=== PATIENT | female | born 1940 | race Two or more races ===

== ENCOUNTER 2021-05-17 01:35 | Emergency (ER) | payer MEDICARE, OTHER ==
[~2021-05-17] VITALS: Ht 170.2 cm; Wt 61.2 kg
[2021-05-17] MEDS ORDERED: TDAP [DIPH/PERTUSSIS/TET] 0.5 ML VIAL IM ONE ×2 (01:59→02:00)
--- NOTE | 2021-05-17 02:00 | NUR ---
TO ER BED 12. [facility] C/O LAC TO RIGHT FOREHEAD S/P GLF. PT AAOX1. NOT IN RESPIRATORY DISTRESS. CONNECTED TO MONITOR. AWAITING MD SALGUERO.
--- NOTE | 2021-05-17 04:43 | NUR ---
[facility]
--- NOTE | 2021-05-17 04:45 | NUR ---
[facility] ETA: 60-75 MIN
--- NOTE | 2021-05-17 06:13 | NUR ---
[facility] ARRIVED TO TRANSPORTATION
[2021-05-17 06:14] VITALS: BP 125/80
== END 2021-05-17 06:14 ==
LOC: ER 01:38
DX: S00.81XA Abrasion of other part of head, initial encounter (principal); F20.9 Schizophrenia, unspecified; I10 Essential (primary) hypertension; F03.90 Unspecified dementia, unspecified severity, without behavioral disturbance, psychotic disturbance, mood disturbance, and anxiety; W19.XXXA Unspecified fall, initial encounter; Y93.89 Activity, other specified; Y92.89 Other specified places as the place of occurrence of the external cause; Y99.8 Other external cause status
CPT/HCPCS: 70450-TC; 90715

== ENCOUNTER 2023-11-14 16:25 | Inpatient (IN) | payer MEDICARE, OTHER ==
[~2023-11-14] VITALS: Ht 157.5 cm; Wt 39.0 kg
[2023-11-14] MEDS ORDERED: ACETAMINOPHEN 650 MG/SUPP.RECT RC ONE ×2 (18:29→18:35)
[2023-11-14] MEDS: ACETAMINOPHEN 650 MG/SUPP.RECT RC ONE (18:38)
[2023-11-14 18:41] LABS: BASOPHILS # (AUTO) 0.1 K/uL (0.0-0.2); BASOPHILS % (AUTO) 0.8 % (0.0-2.0); EOSINOPHILS # (AUTO) 0.1 K/uL (0.0-0.7); EOSINOPHILS % (AUTO) 0.9 % (0.0-6.0); HEMATOCRIT 40 % (33-45); HEMOGLOBIN 13.3 g/dL (11.5-14.8); LYMPHOCYTES # (AUTO) 1.1 K/uL (0.8-4.8); LYMPHOCYTES % (AUTO) 13.2 % (20.0-44.0); MEAN CORPUSCULAR HEMOGLOBIN 30 PG (26.0-33.0); MEAN CORPUSCULAR HGB CONC 33 g/dl (31.0-36.0); MEAN CORPUSCULAR VOLUME 90 fL (82-100); MONOCYTES # (AUTO) 0.6 K/uL (0.1-1.30); NEUTROPHILS # (AUTO) 6.2 K/uL (1.8-8.9); NEUTROPHILS % (AUTO) 77.1 % (43.0-81.0); PLATELET COUNT (AUTO) 238 K/uL (150-450); RED BLOOD CELL COUNT(AUTO) 4.46 MIL/uL (4.0-5.2); RED CELL DISTRIBUTION WIDTH 15.1 % (11.5-15.0)
[2023-11-14 18:48] LABS: CALCIUM, SERUM 10.1 mg/dL (8.5-10.1); CARBON DIOXIDE 28 mmol/L (21-32); CHLORIDE 109 mmol/L (98-107); CREATININE 0.8 mg/dL (0.6-1.3); GLUCOSE 111 mg/dL (74-106); POTASSIUM 4.2 mmol/L (3.5-5.1); SODIUM SERUM 142 mmol/L (136-145); UREA NITROGEN, BLOOD 40 mg/dL (7-18)
[2023-11-14 18:51] LABS: INR 1.04 (0.91-1.10); PARTIAL THROMBOPLASTIN TIME 23.6 SEC (24.3-34.3); PROTHROMBIN TIME 10.7 SECS (9.2-11.1)
[2023-11-14 18:54] LABS: ALANINE AMINOTRANSFERASE 30 U/L (12-78); ALBUMIN 2.8 g/dL (3.4-5.0); ALKALINE PHOSPHATASE 82 U/L (46-116); ASPARTATE AMINOTRANSFERASE 36 U/L (15-37); BILIRUBIN,DIRECT 0.1 mg/dL (0.0-0.2); BILIRUBIN,TOTAL 0.6 mg/dL (0.2-1.0); TOTAL PROTEIN, SERUM 7.2 g/dL (6.4-8.2)
[2023-11-14] MEDS ORDERED: AMLO-212 PO (18:55)
[2023-11-14] MEDS ORDERED: NA P133E RC (18:55)
[2023-11-14] MEDS ORDERED: QUET25TA PO (18:55)
[2023-11-14] MEDS ORDERED: HYDR-500 PO (18:55)
[2023-11-14] MEDS ORDERED: CRAN300T PO (18:55)
[2023-11-14] MEDS ORDERED: QUET50TA PO (18:55)
[2023-11-14] MEDS ORDERED: CHOL100043 PO (18:55)
[2023-11-14] MEDS ORDERED: BISA10SU11 RC (18:55)
[2023-11-14] MEDS ORDERED: LORA-258 PO (18:55)
[2023-11-14] MEDS ORDERED: HYDR-4076 PO (18:55)
[2023-11-14] MEDS ORDERED: DOCU100C36 PO (18:55)
[2023-11-14] MEDS ORDERED: MAGN400O6 PO (18:55)
[2023-11-14] MEDS ORDERED: ACET325T53 PO (18:55)
[2023-11-14] MEDS ORDERED: MELA5TAB PO (18:55)
[2023-11-14 18:57] LABS: LACTIC ACID 0.9 mmol/L (0.4-2.0)
[2023-11-14] MEDS ORDERED: MAGNESIUM HYDROXIDE 30 ML UDC PO PRN (20:30)
[2023-11-14] MEDS ORDERED: MAG HYDROX/AL HYDROX/SIMETH 30 ML UDC PO PRN (20:30)
[2023-11-14] MEDS ORDERED: ACETAMINOPHEN 325 MG TABLET PO PRN (20:30)
[2023-11-14] MEDS ORDERED: ONDANSETRON HCL/PF 4 MG/2 ML VIAL IVP PRN (20:30)
[2023-11-14] MEDS ORDERED: BISACODYL SUPP (10 MG) 10 MG/SUPP.RECT SUPP.RECT RC PRN (21:30)
[2023-11-14 21:51] VITALS: BP 156/90; TEMP 98.6; O2SAT 97
[2023-11-14] MEDS ORDERED: MELATONIN 3 MG TABLET PO SCH (22:00)
[2023-11-14] MEDS: QUETIAPINE FUMARATE 25 MG TABLET PO SCH (22:00)
[2023-11-14] MEDS: IV 1/2NS 1000 ML 1,000 ML IV SCH (22:46)
[2023-11-14] MEDS: ENOXAPARIN SODIUM 40 MG/0.4 ML DISP.SYRIN SQ SCH (23:11)
[2023-11-15 07:05] LABS: BASOPHILS % (AUTO) 0.3 % (0.0-2.0); EOSINOPHILS % (AUTO) 0.2 % (0.0-6.0); HEMATOCRIT 39 % (33-45); HEMOGLOBIN 12.6 g/dL (11.5-14.8); LYMPHOCYTES # (AUTO) 0.8 K/uL (0.8-4.8); LYMPHOCYTES % (AUTO) 10.3 % (20.0-44.0); MEAN CORPUSCULAR HEMOGLOBIN 29 PG (26.0-33.0); MEAN CORPUSCULAR HGB CONC 33 g/dl (31.0-36.0); MEAN CORPUSCULAR VOLUME 89 fL (82-100); MONOCYTES # (AUTO) 0.4 K/uL (0.1-1.30); MONOCYTES % (AUTO) 5.5 % (2.0-12.0); NEUTROPHILS # (AUTO) 6.6 K/uL (1.8-8.9); NEUTROPHILS % (AUTO) 83.7 % (43.0-81.0); PLATELET COUNT (AUTO) 226 K/uL (150-450); RED BLOOD CELL COUNT(AUTO) 4.35 MIL/uL (4.0-5.2); RED CELL DISTRIBUTION WIDTH 14.7 % (11.5-15.0); WHITE BLOOD COUNT (AUTO) 7.9 K/uL (4.3-11.0)
[2023-11-15 07:30] VITALS: BP 202/104; TEMP 97.7; O2SAT 97
[2023-11-15 07:35] LABS: CALCIUM, SERUM 9.9 mg/dL (8.5-10.1); CARBON DIOXIDE 25 mmol/L (21-32); CHLORIDE 108 mmol/L (98-107); CREATININE 0.6 mg/dL (0.6-1.3); GLUCOSE 124 mg/dL (74-106); MAGNESIUM 2.1 mg/dL (1.8-2.4); PHOSPHORUS 2.9 mg/dL (2.5-4.9); POTASSIUM 3.7 mmol/L (3.5-5.1); SODIUM SERUM 144 mmol/L (136-145); UREA NITROGEN, BLOOD 40 mg/dL (7-18)
[2023-11-15] MEDS ORDERED: Medication Not On Formulary EA (Cranberry Extract (Cranberry) 450 MG) PO SCH (09:00)
[2023-11-15] MEDS: QUETIAPINE FUMARATE 25 MG TABLET PO SCH (09:48)
[2023-11-15] MEDS: AMLODIPINE BESYLATE 5 MG TABLET PO SCH (09:49)
[2023-11-15 11:51] LABS: APPEARANCE,URINE TURBID (CLEAR); BILIRUBIN,URINE NEGATIVE (NEGATIVE); BLOOD, URINE TRACE-INTA Ery/uL (NEGATIVE); COLOR,URINE YELLOW (YELLOW); KETONES,URINE NEGATIVE (NEGATIVE); LEUKOCYTE ESTERASE ,URINE 2+ (NEGATIVE); NITRITE, URINE POSITIVE (NEGATIVE); PROTEIN,URINE TRACE mg/dl (NEGATIVE); UGLUCOSE NEGATIVE (NEGATIVE); UROBILINOGEN,URINE 0.2 EU/dL (0.2)
[2023-11-15 12:53] LABS: ADD URINE CULTURE YES; BACTERIA,URINE 1+ /HPF (None Seen)
[2023-11-15] MEDS: LORAZEPAM 0.5 MG TABLET PO SCH (12:53)
[2023-11-15 16:00] VITALS: BP 170/96; TEMP 98.8; O2SAT 97
[2023-11-15] MEDS: DOCUSATE SODIUM 100 MG CAPSULE PO SCH (17:43)
[2023-11-15] MEDS: CHOLECALCIFEROL 1,000 UNIT TABLET (VIT D3) PO SCH (17:43)
[2023-11-15] MEDS: CEFTRIAXONE 1 G in IV D5W 50 ML IV SCH (19:50)
[2023-11-15 20:00] VITALS: BP 156/91; TEMP 98.9; O2SAT 95
[2023-11-15 21:41] VITALS: BP 156/91; TEMP 98.9; O2SAT 95
[2023-11-16] MEDS: IV 1/2NS 1000 ML 1,000 ML IV PRN (03:54)
[2023-11-16 06:31] LABS: BASOPHILS % (AUTO) 0.5 % (0.0-2.0); EOSINOPHILS % (AUTO) 0.3 % (0.0-6.0); HEMATOCRIT 36 % (33-45); LYMPHOCYTES # (AUTO) 0.9 K/uL (0.8-4.8); LYMPHOCYTES % (AUTO) 11.7 % (20.0-44.0); MEAN CORPUSCULAR HEMOGLOBIN 30 PG (26.0-33.0); MEAN CORPUSCULAR HGB CONC 34 g/dl (31.0-36.0); MEAN CORPUSCULAR VOLUME 89 fL (82-100); MONOCYTES # (AUTO) 0.5 K/uL (0.1-1.30); MONOCYTES % (AUTO) 6.1 % (2.0-12.0); NEUTROPHILS % (AUTO) 81.4 % (43.0-81.0); PLATELET COUNT (AUTO) 219 K/uL (150-450); RED BLOOD CELL COUNT(AUTO) 4.04 MIL/uL (4.0-5.2); RED CELL DISTRIBUTION WIDTH 14.4 % (11.5-15.0); WHITE BLOOD COUNT (AUTO) 7.4 K/uL (4.3-11.0)
[2023-11-16 06:38] LABS: CARBON DIOXIDE 23 mmol/L (21-32); CHLORIDE 106 mmol/L (98-107); POTASSIUM 3.5 mmol/L (3.5-5.1); SODIUM SERUM 142 mmol/L (136-145)
[2023-11-16 06:55] LABS: CALCIUM, SERUM 9.3 mg/dL (8.5-10.1); CREATININE 0.6 mg/dL (0.6-1.3); GLUCOSE 104 mg/dL (74-106); UREA NITROGEN, BLOOD 34 mg/dL (7-18)
[2023-11-16 08:00] VITALS: BP 130/84; TEMP 98.6; O2SAT 97
[2023-11-16] MEDS: MUPIROCIN OINT 2% 22 GM TUBE NS SCH (09:51)
[2023-11-16 16:00] VITALS: BP 139/79; TEMP 97.3; O2SAT 95
[2023-11-16 20:00] VITALS: BP 148/85; TEMP 97.7; O2SAT 95
[2023-11-17 06:20] LABS: BASOPHILS % (AUTO) 0.8 % (0.0-2.0); EOSINOPHILS # (AUTO) 0.2 K/uL (0.0-0.7); EOSINOPHILS % (AUTO) 3.1 % (0.0-6.0); HEMATOCRIT 36 % (33-45); HEMOGLOBIN 12.1 g/dL (11.5-14.8); LYMPHOCYTES # (AUTO) 1.2 K/uL (0.8-4.8); MEAN CORPUSCULAR HEMOGLOBIN 30 PG (26.0-33.0); MEAN CORPUSCULAR HGB CONC 34 g/dl (31.0-36.0); MEAN CORPUSCULAR VOLUME 89 fL (82-100); MONOCYTES # (AUTO) 0.5 K/uL (0.1-1.30); MONOCYTES % (AUTO) 7.5 % (2.0-12.0); NEUTROPHILS # (AUTO) 4.3 K/uL (1.8-8.9); NEUTROPHILS % (AUTO) 69.6 % (43.0-81.0); PLATELET COUNT (AUTO) 198 K/uL (150-450); RED BLOOD CELL COUNT(AUTO) 4.06 MIL/uL (4.0-5.2); RED CELL DISTRIBUTION WIDTH 14.4 % (11.5-15.0); WHITE BLOOD COUNT (AUTO) 6.2 K/uL (4.3-11.0)
[2023-11-17 06:45] LABS: CALCIUM, SERUM 9.5 mg/dL (8.5-10.1); CARBON DIOXIDE 22 mmol/L (21-32); CHLORIDE 104 mmol/L (98-107); CREATININE 0.5 mg/dL (0.6-1.3); GLUCOSE 77 mg/dL (74-106); POTASSIUM 3.3 mmol/L (3.5-5.1); SODIUM SERUM 140 mmol/L (136-145); UREA NITROGEN, BLOOD 24 mg/dL (7-18)
[2023-11-17 07:02] LABS: MAGNESIUM 1.9 mg/dL (1.8-2.4); PHOSPHORUS 2.3 mg/dL (2.5-4.9)
[2023-11-17 08:00] VITALS: BP 102/49; TEMP 98.6; O2SAT 97
[2023-11-17] MEDS: hydrALAZINE HCL 25 MG TABLET PO PRN (08:02)
[2023-11-17] MEDS: POTASSIUM CHLORIDE 20 MEQ TAB.PRT.SR PO SCH (09:50)
[2023-11-17] MEDS: K PHOS NEUTRAL 250 MG TABLET PO ONE (15:23)
[2023-11-17 16:00] VITALS: BP 132/66; TEMP 98.4; O2SAT 98
[2023-11-17 20:00] VITALS: BP 154/92; TEMP 97.3; O2SAT 98
[2023-11-18 06:19] LABS: BASOPHILS % (AUTO) 0.7 % (0.0-2.0); EOSINOPHILS # (AUTO) 0.1 K/uL (0.0-0.7); HEMATOCRIT 34 % (33-45); HEMOGLOBIN 11.6 g/dL (11.5-14.8); LYMPHOCYTES # (AUTO) 0.9 K/uL (0.8-4.8); LYMPHOCYTES % (AUTO) 13.9 % (20.0-44.0); MEAN CORPUSCULAR HEMOGLOBIN 30 PG (26.0-33.0); MEAN CORPUSCULAR HGB CONC 34 g/dl (31.0-36.0); MEAN CORPUSCULAR VOLUME 88 fL (82-100); MONOCYTES # (AUTO) 0.4 K/uL (0.1-1.30); MONOCYTES % (AUTO) 6.8 % (2.0-12.0); NEUTROPHILS # (AUTO) 4.8 K/uL (1.8-8.9); NEUTROPHILS % (AUTO) 77.6 % (43.0-81.0); PLATELET COUNT (AUTO) 236 K/uL (150-450); RED BLOOD CELL COUNT(AUTO) 3.89 MIL/uL (4.0-5.2); RED CELL DISTRIBUTION WIDTH 13.8 % (11.5-15.0); WHITE BLOOD COUNT (AUTO) 6.2 K/uL (4.3-11.0)
[2023-11-18 06:36] LABS: CALCIUM, SERUM 9.3 mg/dL (8.5-10.1); CARBON DIOXIDE 19 mmol/L (21-32); CHLORIDE 101 mmol/L (98-107); CREATININE 0.4 mg/dL (0.6-1.3); GLUCOSE 83 mg/dL (74-106); MAGNESIUM 1.6 mg/dL (1.8-2.4); PHOSPHORUS 2.6 mg/dL (2.5-4.9); POTASSIUM 3.1 mmol/L (3.5-5.1); SODIUM SERUM 137 mmol/L (136-145); UREA NITROGEN, BLOOD 14 mg/dL (7-18)
[2023-11-18 08:00] VITALS: BP 173/86; TEMP 98.6; O2SAT 94
[2023-11-18] MEDS: POTASSIUM CHLORIDE 20 MEQ TAB.PRT.SR PO SCH (10:30)
[2023-11-18] MEDS: MAGNESIUM OXIDE 400 MG TABLET PO ONE (11:05)
[2023-11-18 12:00] VITALS: BP 118/83; TEMP 98.4; O2SAT 98
[2023-11-18] MEDS ORDERED: POTASSIUM BICARBONATE/CIT AC 25 MEQ TABLET.EFF NG SCH (12:00)
[2023-11-18] MEDS: LEVOFLOXACIN (250MG) 250 MG TABLET NG SCH (15:30)
[2023-11-18] MEDS: POTASSIUM CHLORIDE 20 MEQ POWDER PACKET GT SCH (15:39)
[2023-11-18 16:00] VITALS: BP 125/78; TEMP 98.7; O2SAT 98
[2023-11-18] MEDS: MULTIVITAMINS,THERAGRAN 1 UDTAB TABLET GT SCH (16:48)
[2023-11-18] MEDS ORDERED: MAGNESIUM HYDROXIDE 30 ML UDC GT PRN (17:50)
[2023-11-18] MEDS ORDERED: hydrALAZINE HCL 25 MG TABLET GT PRN (17:50)
[2023-11-18] MEDS ORDERED: MAG HYDROX/AL HYDROX/SIMETH 30 ML UDC GT PRN (17:50)
[2023-11-18] MEDS: JEVITY 1.2 CAL 1,000 ML BOTTLE GT SCH (17:52)
[2023-11-18] MEDS: CHOLECALCIFEROL 1,000 UNIT TABLET (VIT D3) GT SCH (17:57)
[2023-11-18] MEDS: DOCUSATE SODIUM LIQ 100 MG/10 ML UDC GT SCH (17:57)
[2023-11-18] MEDS ORDERED: ACETAMINOPHEN 650 MG/20.3 ML UDC GT PRN (18:00)
[2023-11-18 20:00] VITALS: BP 118/100; TEMP 95.1; TEMP 98.1; O2SAT 97
[2023-11-19 07:05] LABS: BASOPHILS % (AUTO) 0.3 % (0.0-2.0); EOSINOPHILS # (AUTO) 0.1 K/uL (0.0-0.7); HEMATOCRIT 33 % (33-45); HEMOGLOBIN 11.4 g/dL (11.5-14.8); LYMPHOCYTES # (AUTO) 0.6 K/uL (0.8-4.8); LYMPHOCYTES % (AUTO) 8.4 % (20.0-44.0); MEAN CORPUSCULAR HEMOGLOBIN 30 PG (26.0-33.0); MEAN CORPUSCULAR HGB CONC 34 g/dl (31.0-36.0); MEAN CORPUSCULAR VOLUME 87 fL (82-100); MONOCYTES # (AUTO) 0.5 K/uL (0.1-1.30); MONOCYTES % (AUTO) 7.3 % (2.0-12.0); NEUTROPHILS # (AUTO) 5.6 K/uL (1.8-8.9); PLATELET COUNT (AUTO) 256 K/uL (150-450); RED BLOOD CELL COUNT(AUTO) 3.82 MIL/uL (4.0-5.2); WHITE BLOOD COUNT (AUTO) 6.7 K/uL (4.3-11.0)
[2023-11-19 07:25] LABS: CARBON DIOXIDE 24 mmol/L (21-32); CHLORIDE 102 mmol/L (98-107); CREATININE 0.4 mg/dL (0.6-1.3); GLUCOSE 180 mg/dL (74-106); MAGNESIUM 1.5 mg/dL (1.8-2.4); PHOSPHORUS 1.4 mg/dL (2.5-4.9); POTASSIUM 3.7 mmol/L (3.5-5.1); SODIUM SERUM 136 mmol/L (136-145); UREA NITROGEN, BLOOD 11 mg/dL (7-18)
[2023-11-19 08:25] VITALS: BP 120/69; TEMP 97.6; O2SAT 98
[2023-11-19] MEDS: AMLODIPINE BESYLATE 5 MG TABLET GT SCH (08:33)
[2023-11-19] MEDS: MAGNESIUM OXIDE 400 MG TABLET GT ONE (10:06)
[2023-11-19 16:12] VITALS: BP 104/60; TEMP 99; O2SAT 98
[2023-11-19] MEDS: NEUTRA PHOS 1 POWD.PACKET GT ONE (16:23)
[2023-11-19 20:00] VITALS: BP 117/69; TEMP 98.2; O2SAT 96
[2023-11-20 06:30] LABS: BASOPHILS % (AUTO) 0.3 % (0.0-2.0); EOSINOPHILS # (AUTO) 0.2 K/uL (0.0-0.7); HEMATOCRIT 30 % (33-45); HEMOGLOBIN 10.3 g/dL (11.5-14.8); LYMPHOCYTES # (AUTO) 0.9 K/uL (0.8-4.8); LYMPHOCYTES % (AUTO) 14.6 % (20.0-44.0); MEAN CORPUSCULAR HEMOGLOBIN 30 PG (26.0-33.0); MEAN CORPUSCULAR HGB CONC 35 g/dl (31.0-36.0); MEAN CORPUSCULAR VOLUME 87 fL (82-100); MONOCYTES # (AUTO) 0.5 K/uL (0.1-1.30); MONOCYTES % (AUTO) 8.2 % (2.0-12.0); NEUTROPHILS # (AUTO) 4.3 K/uL (1.8-8.9); NEUTROPHILS % (AUTO) 73.9 % (43.0-81.0); PLATELET COUNT (AUTO) 243 K/uL (150-450); RED BLOOD CELL COUNT(AUTO) 3.43 MIL/uL (4.0-5.2); RED CELL DISTRIBUTION WIDTH 14.3 % (11.5-15.0); WHITE BLOOD COUNT (AUTO) 5.8 K/uL (4.3-11.0)
[2023-11-20 08:00] VITALS: BP 128/76; TEMP 98.3; O2SAT 99
[2023-11-20 08:53] LABS: CALCIUM, SERUM 9.5 mg/dL (8.5-10.1); CARBON DIOXIDE 26 mmol/L (21-32); CHLORIDE 104 mmol/L (98-107); CREATININE 0.4 mg/dL (0.6-1.3); GLUCOSE 145 mg/dL (74-106); MAGNESIUM 1.7 mg/dL (1.8-2.4); POTASSIUM 3.7 mmol/L (3.5-5.1); SODIUM SERUM 141 mmol/L (136-145); UREA NITROGEN, BLOOD 11 mg/dL (7-18)
[2023-11-20 09:39] LABS: PHOSPHORUS 2.9 mg/dL (2.5-4.9)
[2023-11-21 06:30] LABS: BASOPHILS % (AUTO) 0.4 % (0.0-2.0); EOSINOPHILS # (AUTO) 0.2 K/uL (0.0-0.7); EOSINOPHILS % (AUTO) 3.4 % (0.0-6.0); HEMATOCRIT 32 % (33-45); LYMPHOCYTES # (AUTO) 0.9 K/uL (0.8-4.8); LYMPHOCYTES % (AUTO) 15.8 % (20.0-44.0); MEAN CORPUSCULAR HEMOGLOBIN 30 PG (26.0-33.0); MEAN CORPUSCULAR HGB CONC 34 g/dl (31.0-36.0); MEAN CORPUSCULAR VOLUME 88 fL (82-100); MONOCYTES # (AUTO) 0.4 K/uL (0.1-1.30); MONOCYTES % (AUTO) 6.8 % (2.0-12.0); NEUTROPHILS # (AUTO) 4.2 K/uL (1.8-8.9); NEUTROPHILS % (AUTO) 73.6 % (43.0-81.0); PLATELET COUNT (AUTO) 271 K/uL (150-450); RED BLOOD CELL COUNT(AUTO) 3.65 MIL/uL (4.0-5.2); RED CELL DISTRIBUTION WIDTH 14.5 % (11.5-15.0); WHITE BLOOD COUNT (AUTO) 5.7 K/uL (4.3-11.0)
[2023-11-21 06:59] LABS: CALCIUM, SERUM 9.9 mg/dL (8.5-10.1); CARBON DIOXIDE 33 mmol/L (21-32); CHLORIDE 104 mmol/L (98-107); CREATININE 0.4 mg/dL (0.6-1.3); GLUCOSE 126 mg/dL (74-106); MAGNESIUM 1.8 mg/dL (1.8-2.4); PHOSPHORUS 3.2 mg/dL (2.5-4.9); SODIUM SERUM 141 mmol/L (136-145); UREA NITROGEN, BLOOD 14 mg/dL (7-18)
[2023-11-21] MEDS ORDERED: CEFTRIAXONE 1 G in IV D5W 50 ML IV SCH (07:30)
[2023-11-21] MEDS ORDERED: CEFEPIME 1 GM in IV D5W 50 ML IV SCH (07:30)
[2023-11-21 08:00] VITALS: BP 126/70; TEMP 98.1; O2SAT 97
[2023-11-21] MEDS: Magnesium 1GM/D5W 100ML PREMIX 100 ML IV SCH (08:20)
[2023-11-21] MEDS: CEFEPIME 1 GM in IV D5W 50 ML IV SCH (08:23)
[2023-11-21 15:47] VITALS: BP 100/67; TEMP 98.1; O2SAT 94
[2023-11-21 20:04] VITALS: BP 109/64; TEMP 98.4; O2SAT 99
[2023-11-22 07:00] VITALS: BP 105/84; TEMP 97.5; O2SAT 93
[2023-11-22 09:48] VITALS: BP 137/73
== END 2023-11-22 15:15 | DRG 640 ==
LOC: ER 16:28 → MED 20:15
PROVIDERS: ATTEND Internal Medicine
DX: E86.0 Dehydration (principal); E43 Unspecified severe protein-calorie malnutrition; G93.41 Metabolic encephalopathy; N39.0 Urinary tract infection, site not specified; R62.7 Adult failure to thrive; Z20.822 Contact with and (suspected) exposure to COVID-19; F01.50 Vascular dementia, unspecified severity, without behavioral disturbance, psychotic disturbance, mood disturbance, and anxiety; I10 Essential (primary) hypertension; Z79.899 Other long term (current) drug therapy; F25.9 Schizoaffective disorder, unspecified; F29 Unspecified psychosis not due to a substance or known physiological condition; E88.09 Other disorders of plasma-protein metabolism, not elsewhere classified; B96.5 Pseudomonas (aeruginosa) (mallei) (pseudomallei) as the cause of diseases classified elsewhere; F41.9 Anxiety disorder, unspecified
CPT/HCPCS: 36415; 71045-TC; 80048-TC; 80076-TC; 81001; 82962-TC; 83605-TC; 83735-TC; 84100-TC; 84484-TC; 85025-TC; 85730-TC; 87040-TC; 87081-TC; 87086-TC; 92526; 92611-TC; A4223; G0378; J0692; J0696; J1650; J3475; J3490; J7060

== ENCOUNTER 2023-11-30 18:05 | Inpatient (IN) | payer MEDICARE, OTHER ==
[~2023-11-30] VITALS: Ht 147.3 cm; Wt 38.6 kg
[~2023-11-30 18:05] MED LIST: ACET325T53 PO; AMLO-212 PO; BISA10SU11 RC; CHOL100043 PO; CRAN300T PO; DOCU100C36 PO; HYDR-4076 PO; HYDR-500 PO; LORA-258 PO; MAGN400O6 PO; MELA5TAB PO; NA P133E RC; QUET25TA PO; QUET50TA PO
[2023-11-30 18:26] LABS: BASOPHILS # (AUTO) 0.1 K/uL (0.0-0.2); BASOPHILS % (AUTO) 1.4 % (0.0-2.0); EOSINOPHILS # (AUTO) 0.2 K/uL (0.0-0.7); EOSINOPHILS % (AUTO) 2.4 % (0.0-6.0); HEMATOCRIT 35 % (33-45); HEMOGLOBIN 11.7 g/dL (11.5-14.8); LYMPHOCYTES # (AUTO) 1.2 K/uL (0.8-4.8); LYMPHOCYTES % (AUTO) 16.9 % (20.0-44.0); MEAN CORPUSCULAR HEMOGLOBIN 30 PG (26.0-33.0); MEAN CORPUSCULAR HGB CONC 33 g/dl (31.0-36.0); MEAN CORPUSCULAR VOLUME 89 fL (82-100); MONOCYTES # (AUTO) 0.4 K/uL (0.1-1.30); MONOCYTES % (AUTO) 5.6 % (2.0-12.0); NEUTROPHILS # (AUTO) 5.1 K/uL (1.8-8.9); NEUTROPHILS % (AUTO) 73.7 % (43.0-81.0); PLATELET COUNT (AUTO) 350 K/uL (150-450); RED BLOOD CELL COUNT(AUTO) 3.94 MIL/uL (4.0-5.2); RED CELL DISTRIBUTION WIDTH 14.4 % (11.5-15.0); WHITE BLOOD COUNT (AUTO) 6.9 K/uL (4.3-11.0)
[2023-11-30] MEDS: IV NS 0.9% 1,000 ML BAG IV ONE (18:27)
[2023-11-30] MEDS: IV NS 0.9% 500 ML BAG IV ONE (18:28)
[2023-11-30] MEDS: CEFEPIME 1 GM in IV D5W 50 ML IV ONE (18:40)
[2023-11-30 18:41] LABS: ALANINE AMINOTRANSFERASE 20 U/L (12-78); ALBUMIN 2.6 g/dL (3.4-5.0); ALKALINE PHOSPHATASE 62 U/L (46-116); ASPARTATE AMINOTRANSFERASE 31 U/L (15-37); BILIRUBIN,TOTAL 0.3 mg/dL (0.2-1.0); CALCIUM, SERUM 9.2 mg/dL (8.5-10.1); CARBON DIOXIDE 32 mmol/L (21-32); CHLORIDE 104 mmol/L (98-107); CREATININE 0.9 mg/dL (0.6-1.3); GLUCOSE 105 mg/dL (74-106); POTASSIUM 4.3 mmol/L (3.5-5.1); SODIUM SERUM 139 mmol/L (136-145)
[2023-11-30 18:44] LABS: LACTIC ACID 1.5 mmol/L (0.4-2.0)
[2023-11-30 18:46] LABS: APPEARANCE,URINE Clear (CLEAR); BILIRUBIN,URINE Negative (NEGATIVE); BLOOD, URINE Negative Ery/uL (NEGATIVE); COLOR,URINE YELLOW (YELLOW); KETONES,URINE Negative (NEGATIVE); LEUKOCYTE ESTERASE ,URINE Negative (NEGATIVE); NITRITE, URINE Negative (NEGATIVE); PH,URINE 6.5 (5.0-8.0); PROTEIN,URINE Negative (NEGATIVE); UGLUCOSE Negative (NEGATIVE); UROBILINOGEN,URINE 0.2 EU/dL (0.2)
[2023-11-30 18:51] LABS: BILIRUBIN,DIRECT 0.1 mg/dL (0.0-0.2)
[2023-11-30] MEDS ORDERED: MULT-213 PO (18:51)
[2023-11-30 19:12] LABS: UREA NITROGEN, BLOOD 18 mg/dL (7-18)
[2023-11-30] MEDS ORDERED: ONDANSETRON HCL/PF 4 MG/2 ML VIAL IVP PRN (20:30)
[2023-11-30] MEDS ORDERED: Z GUARD REMEDY 4 OZ OINT TP PRN (20:30)
[2023-11-30] MEDS ORDERED: hydrALAZINE HCL 25 MG TABLET PO PRN (20:30)
[2023-11-30] MEDS ORDERED: ACETAMINOPHEN 325 MG TABLET PO PRN ×2 (20:30)
[2023-11-30] MEDS ORDERED: MAG HYDROX/AL HYDROX/SIMETH 30 ML UDC PO PRN (20:30)
[2023-11-30] MEDS ORDERED: BISACODYL SUPP (10 MG) 10 MG/SUPP.RECT SUPP.RECT RC PRN (20:30)
[2023-11-30] MEDS ORDERED: MAGNESIUM HYDROXIDE 30 ML UDC PO PRN (20:30)
[2023-11-30 22:43] VITALS: BP 137/60; TEMP 98.4; O2SAT 99
[2023-11-30 23:24] VITALS: BP 137/60; TEMP 98.4; O2SAT 99
[2023-11-30] MEDS: IV NS 0.9% 1,000 ML IV PRN (23:33)
[2023-12-01 06:05] LABS: BASOPHILS # (AUTO) 0.1 K/uL (0.0-0.2); BASOPHILS % (AUTO) 1.3 % (0.0-2.0); EOSINOPHILS # (AUTO) 0.2 K/uL (0.0-0.7); EOSINOPHILS % (AUTO) 4.1 % (0.0-6.0); HEMATOCRIT 33 % (33-45); HEMOGLOBIN 10.7 g/dL (11.5-14.8); LYMPHOCYTES # (AUTO) 1.1 K/uL (0.8-4.8); LYMPHOCYTES % (AUTO) 22.8 % (20.0-44.0); MEAN CORPUSCULAR HEMOGLOBIN 29 PG (26.0-33.0); MEAN CORPUSCULAR HGB CONC 33 g/dl (31.0-36.0); MEAN CORPUSCULAR VOLUME 90 fL (82-100); MONOCYTES # (AUTO) 0.2 K/uL (0.1-1.30); MONOCYTES % (AUTO) 4.6 % (2.0-12.0); NEUTROPHILS # (AUTO) 3.4 K/uL (1.8-8.9); NEUTROPHILS % (AUTO) 67.2 % (43.0-81.0); PLATELET COUNT (AUTO) 288 K/uL (150-450); RED BLOOD CELL COUNT(AUTO) 3.65 MIL/uL (4.0-5.2); RED CELL DISTRIBUTION WIDTH 15.3 % (11.5-15.0)
[2023-12-01 06:45] LABS: ALANINE AMINOTRANSFERASE 14 U/L (12-78); ALBUMIN 2.2 g/dL (3.4-5.0); ALKALINE PHOSPHATASE 63 U/L (46-116); ASPARTATE AMINOTRANSFERASE 24 U/L (15-37); BILIRUBIN,TOTAL 0.4 mg/dL (0.2-1.0); CARBON DIOXIDE 29 mmol/L (21-32); CHLORIDE 113 mmol/L (98-107); CREATININE 0.5 mg/dL (0.6-1.3); GLUCOSE 86 mg/dL (74-106); PHOSPHORUS 2.9 mg/dL (2.5-4.9); SODIUM SERUM 147 mmol/L (136-145); TOTAL PROTEIN, SERUM 6.2 g/dL (6.4-8.2); UREA NITROGEN, BLOOD 13 mg/dL (7-18)
[2023-12-01 07:30] VITALS: BP 133/72; TEMP 97.9; O2SAT 100
[2023-12-01] MEDS: MULTIVIT W/MINERALS 1 TAB TABLET PO SCH (09:00)
[2023-12-01] MEDS: AMLODIPINE BESYLATE 5 MG TABLET PO SCH (09:00)
[2023-12-01] MEDS ORDERED: Medication Not On Formulary EA (Cranberry Extract (Cranberry) 450 MG) PO SCH (09:00)
[2023-12-01 16:00] VITALS: BP 113/83; TEMP 98.2; O2SAT 98
[2023-12-01] MEDS: DOCUSATE SODIUM 100 MG CAPSULE PO SCH (18:17)
[2023-12-01] MEDS: CHOLECALCIFEROL 1,000 UNIT TABLET (VIT D3) PO SCH (18:17)
[2023-12-02 05:20] VITALS: O2SAT 98
[2023-12-02 06:04] LABS: BASOPHILS % (AUTO) 0.9 % (0.0-2.0); EOSINOPHILS # (AUTO) 0.2 K/uL (0.0-0.7); EOSINOPHILS % (AUTO) 4.1 % (0.0-6.0); HEMATOCRIT 29 % (33-45); HEMOGLOBIN 9.6 g/dL (11.5-14.8); LYMPHOCYTES # (AUTO) 1.1 K/uL (0.8-4.8); LYMPHOCYTES % (AUTO) 21.8 % (20.0-44.0); MEAN CORPUSCULAR HEMOGLOBIN 30 PG (26.0-33.0); MEAN CORPUSCULAR HGB CONC 33 g/dl (31.0-36.0); MEAN CORPUSCULAR VOLUME 89 fL (82-100); MONOCYTES # (AUTO) 0.3 K/uL (0.1-1.30); NEUTROPHILS # (AUTO) 3.5 K/uL (1.8-8.9); NEUTROPHILS % (AUTO) 67.2 % (43.0-81.0); PLATELET COUNT (AUTO) 238 K/uL (150-450); RED BLOOD CELL COUNT(AUTO) 3.23 MIL/uL (4.0-5.2); RED CELL DISTRIBUTION WIDTH 14.7 % (11.5-15.0); WHITE BLOOD COUNT (AUTO) 5.2 K/uL (4.3-11.0)
[2023-12-02 06:32] LABS: ALANINE AMINOTRANSFERASE 17 U/L (12-78); ALBUMIN 2.3 g/dL (3.4-5.0); ALKALINE PHOSPHATASE 66 U/L (46-116); ASPARTATE AMINOTRANSFERASE 28 U/L (15-37); BILIRUBIN,TOTAL 0.5 mg/dL (0.2-1.0); CARBON DIOXIDE 27 mmol/L (21-32); CHLORIDE 111 mmol/L (98-107); CREATININE 0.5 mg/dL (0.6-1.3); GLUCOSE 90 mg/dL (74-106); MAGNESIUM 1.8 mg/dL (1.8-2.4); PHOSPHORUS 2.5 mg/dL (2.5-4.9); POTASSIUM 3.7 mmol/L (3.5-5.1); SODIUM SERUM 145 mmol/L (136-145); TOTAL PROTEIN, SERUM 6.1 g/dL (6.4-8.2); UREA NITROGEN, BLOOD 9 mg/dL (7-18)
[2023-12-02 08:00] VITALS: BP 144/66; TEMP 98.1; O2SAT 98
[2023-12-02 12:35] LABS: THYROID STIMULATING HORMONE 0.93 uIU/mL (0.358-3.74)
[2023-12-02 16:00] VITALS: BP 146/94; TEMP 100.2; O2SAT 100
[2023-12-02] MEDS: ENSURE ENLIVE 237 ML LIQUID (VANILLA) PO SCH (17:28)
[2023-12-02 20:00] VITALS: BP 125/95; TEMP 98.2; O2SAT 96
[2023-12-03 05:00] VITALS: O2SAT 97
[2023-12-03 08:00] VITALS: BP 138/74; TEMP 99; O2SAT 98
[2023-12-03 08:26] VITALS: BP 130/80
[2023-12-05 00:11] LABS: FOLIC ACID 14.7 ng/mL (>3.0)
== END 2023-12-03 16:15 | DRG 92 ==
LOC: ER 18:07 → EDBD 21:19 → TELE 21:19 → MED 21:56
PROVIDERS: ADMIT Nurse Practitioner Acute Care
DX: G92.8 Other toxic encephalopathy (principal); E44.0 Moderate protein-calorie malnutrition; Z68.1 Body mass index [BMI] 19.9 or less, adult; F25.9 Schizoaffective disorder, unspecified; F03.90 Unspecified dementia, unspecified severity, without behavioral disturbance, psychotic disturbance, mood disturbance, and anxiety; T43.8X5A Adverse effect of other psychotropic drugs, initial encounter; Y92.129 Unspecified place in nursing home as the place of occurrence of the external cause; E88.09 Other disorders of plasma-protein metabolism, not elsewhere classified; I10 Essential (primary) hypertension; R13.10 Dysphagia, unspecified; R62.7 Adult failure to thrive
CPT/HCPCS: 36415; 70450-TC; 71045-TC; 80048-TC; 80053-TC; 80061-TC; 80076-TC; 82607-TC; 82962-TC; 83605-TC; 83735-TC; 83921; 84100-TC; 84425; 84443-TC; 84484-TC; 85025-TC; 87040-TC; 87086-TC; 92526; 92611-TC; 94761-TC; 94799-TC; A4223; G0378; J0692; J7030; J7040; J7060

== ENCOUNTER 2024-01-02 20:11 | Inpatient (IN) | payer MEDICARE, OTHER ==
[2024-01-02] VITALS: BP 129/64; TEMP 97.7; O2SAT 95
[~2024-01-02] VITALS: Ht 152.4 cm; Wt 38.6 kg
[~2024-01-02 20:11] MED LIST changes: +AMIN30LI66 PO; +MULT-213 PO
[2024-01-02] MEDS: IV NS 0.9% 1,000 ML BAG IV ONE (23:30)
[2024-01-02 23:31] LABS: BASOPHILS # (AUTO) 0.1 K/uL (0.0-0.2); EOSINOPHILS # (AUTO) 0.2 K/uL (0.0-0.7); EOSINOPHILS % (AUTO) 2.8 % (0.0-6.0); HEMATOCRIT 36 % (33-45); HEMOGLOBIN 11.4 g/dL (11.5-14.8); LYMPHOCYTES # (AUTO) 1.3 K/uL (0.8-4.8); LYMPHOCYTES % (AUTO) 22.3 % (20.0-44.0); MEAN CORPUSCULAR HEMOGLOBIN 29 PG (26.0-33.0); MEAN CORPUSCULAR HGB CONC 32 g/dl (31.0-36.0); MEAN CORPUSCULAR VOLUME 90 fL (82-100); MONOCYTES # (AUTO) 0.2 K/uL (0.1-1.30); MONOCYTES % (AUTO) 3.9 % (2.0-12.0); NEUTROPHILS # (AUTO) 4.1 K/uL (1.8-8.9); PLATELET COUNT (AUTO) 210 K/uL (150-450); RED BLOOD CELL COUNT(AUTO) 3.99 MIL/uL (4.0-5.2); RED CELL DISTRIBUTION WIDTH 16.9 % (11.5-15.0); WHITE BLOOD COUNT (AUTO) 5.9 K/uL (4.3-11.0)
[2024-01-02 23:59] LABS: ALANINE AMINOTRANSFERASE 41 U/L (12-78); ALBUMIN 2.5 g/dL (3.4-5.0); ALKALINE PHOSPHATASE 114 U/L (46-116); ASPARTATE AMINOTRANSFERASE 29 U/L (15-37); BILIRUBIN,DIRECT 0.2 mg/dL (0.0-0.2); BILIRUBIN,TOTAL 0.4 mg/dL (0.2-1.0); CALCIUM, SERUM 9.5 mg/dL (8.5-10.1); CARBON DIOXIDE 26 mmol/L (21-32); CREATININE 0.8 mg/dL (0.6-1.3); GLUCOSE 116 mg/dL (74-106); TOTAL PROTEIN, SERUM 7.4 g/dL (6.4-8.2); UREA NITROGEN, BLOOD 47 mg/dL (7-18)
[2024-01-03 00:11] LABS: POTASSIUM 3.7 mmol/L (3.5-5.1)
[2024-01-03 00:16] LABS: CHLORIDE 134 mmol/L (98-107); SODIUM SERUM 172 mmol/L (136-145)
[2024-01-03] MEDS ORDERED: ACETAMINOPHEN 650 MG/SUPP.RECT RC PRN (01:00)
[2024-01-03] MEDS ORDERED: ONDANSETRON HCL/PF 4 MG/2 ML VIAL IVP PRN (01:00)
[2024-01-03] MEDS ORDERED: ACETAMINOPHEN 325 MG TABLET PO PRN (01:00)
[2024-01-03] MEDS ORDERED: MAGNESIUM HYDROXIDE 30 ML UDC PO PRN (01:00)
[2024-01-03] MEDS ORDERED: Z GUARD REMEDY 4 OZ OINT TP PRN (01:00)
[2024-01-03 01:22] LABS: CALCIUM, SERUM 8.9 mg/dL (8.5-10.1); CARBON DIOXIDE 25 mmol/L (21-32); CREATININE 0.9 mg/dL (0.6-1.3); GLUCOSE 100 mg/dL (74-106); POTASSIUM 3.6 mmol/L (3.5-5.1); UREA NITROGEN, BLOOD 46 mg/dL (7-18)
[2024-01-03 01:35] LABS: SODIUM SERUM 174 mmol/L (136-145)
[2024-01-03 01:36] LABS: CHLORIDE 138 mmol/L (98-107)
[2024-01-03] MEDS: IV D5W 1,000 ML IV PRN (05:38)
[2024-01-03 07:21] LABS: APPEARANCE,URINE CLEAR (CLEAR); BILIRUBIN,URINE NEGATIVE (NEGATIVE); BLOOD, URINE NEGATIVE Ery/uL (NEGATIVE); COLOR,URINE DARK YELLOW (YELLOW); KETONES,URINE NEGATIVE (NEGATIVE); LEUKOCYTE ESTERASE ,URINE TRACE (NEGATIVE); NITRITE, URINE POSITIVE (NEGATIVE); PH,URINE 5.5 (5.0-8.0); PROTEIN,URINE TRACE mg/dl (NEGATIVE); UGLUCOSE NEGATIVE (NEGATIVE); UROBILINOGEN,URINE 0.2 EU/dL (0.2)
[2024-01-03 07:27] LABS: BASOPHILS % (AUTO) 0.9 % (0.0-2.0); EOSINOPHILS # (AUTO) 0.1 K/uL (0.0-0.7); EOSINOPHILS % (AUTO) 2.1 % (0.0-6.0); HEMATOCRIT 35 % (33-45); HEMOGLOBIN 10.9 g/dL (11.5-14.8); LYMPHOCYTES # (AUTO) 1.4 K/uL (0.8-4.8); MEAN CORPUSCULAR HEMOGLOBIN 28 PG (26.0-33.0); MEAN CORPUSCULAR HGB CONC 31 g/dl (31.0-36.0); MEAN CORPUSCULAR VOLUME 90 fL (82-100); MONOCYTES # (AUTO) 0.3 K/uL (0.1-1.30); MONOCYTES % (AUTO) 5.4 % (2.0-12.0); NEUTROPHILS # (AUTO) 3.4 K/uL (1.8-8.9); NEUTROPHILS % (AUTO) 65.6 % (43.0-81.0); PLATELET COUNT (AUTO) 204 K/uL (150-450); RED BLOOD CELL COUNT(AUTO) 3.88 MIL/uL (4.0-5.2); WHITE BLOOD COUNT (AUTO) 5.2 K/uL (4.3-11.0)
[2024-01-03 07:30] VITALS: BP 133/111; TEMP 98.2; O2SAT 97
[2024-01-03 07:54] LABS: CALCIUM, SERUM 8.8 mg/dL (8.5-10.1); CARBON DIOXIDE 23 mmol/L (21-32); CREATININE 0.8 mg/dL (0.6-1.3); GLUCOSE 85 mg/dL (74-106); MAGNESIUM 2.6 mg/dL (1.8-2.4); POTASSIUM 3.4 mmol/L (3.5-5.1); UREA NITROGEN, BLOOD 44 mg/dL (7-18)
[2024-01-03 07:58] LABS: CHLORIDE 138 mmol/L (98-107); SODIUM SERUM 173 mmol/L (136-145)
[2024-01-03 08:32] LABS: ADD URINE CULTURE YES; BACTERIA,URINE 2+ /HPF (None Seen); RBC,URINE 0-2 /HPF (0-2); WBC,URINE 21-50 /HPF (0-3)
[2024-01-03] MEDS: MEGESTROL ACETATE 40 MG TABLET PO SCH (09:47)
[2024-01-03] MEDS: PANTOPRAZOLE 40 MG VIAL IV SCH (09:47)
[2024-01-03] MEDS: POTASSIUM CL. PREMIX PERIPHER. 50 ML IV SCH (09:48)
[2024-01-03] MEDS: IV D5W 1,000 ML IV SCH (09:58)
[2024-01-03] MEDS: IV D5W 1,000 ML IV ONE (11:24)
[2024-01-03 13:30] LABS: CALCIUM, SERUM 8.6 mg/dL (8.5-10.1); CARBON DIOXIDE 26 mmol/L (21-32); CREATININE 0.8 mg/dL (0.6-1.3); GLUCOSE 130 mg/dL (74-106); POTASSIUM 3.4 mmol/L (3.5-5.1); UREA NITROGEN, BLOOD 41 mg/dL (7-18)
[2024-01-03 13:40] LABS: CHLORIDE 136 mmol/L (98-107); SODIUM SERUM 169 mmol/L (136-145)
[2024-01-03 15:17] LABS: CARBON DIOXIDE 26 mmol/L (21-32); CREATININE 0.9 mg/dL (0.6-1.3); GLUCOSE 178 mg/dL (74-106); POTASSIUM 3.7 mmol/L (3.5-5.1); UREA NITROGEN, BLOOD 38 mg/dL (7-18)
[2024-01-03 15:25] LABS: CALCIUM, SERUM 8.3 mg/dL (8.5-10.1)
[2024-01-03 15:51] LABS: SODIUM SERUM 164 mmol/L (136-145)
[2024-01-03 15:52] LABS: CHLORIDE 131 mmol/L (98-107)
[2024-01-03 16:16] LABS: CALCIUM, SERUM 8.3 mg/dL (8.5-10.1); CARBON DIOXIDE 26 mmol/L (21-32); CREATININE 0.9 mg/dL (0.6-1.3); GLUCOSE 135 mg/dL (74-106); POTASSIUM 3.5 mmol/L (3.5-5.1); UREA NITROGEN, BLOOD 36 mg/dL (7-18)
[2024-01-03 16:20] LABS: SODIUM SERUM 162 mmol/L (136-145)
[2024-01-03 16:21] LABS: CHLORIDE 130 mmol/L (98-107)
[2024-01-03] MEDS: ENSURE ENLIVE 237 ML LIQUID (VANILLA) PO SCH (17:30)
[2024-01-03] MEDS ORDERED: LORAZEPAM 1 MG TABLET PO PRN (18:30)
[2024-01-03 20:00] VITALS: BP 119/96; TEMP 97.9; O2SAT 100
[2024-01-03 20:21] LABS: CALCIUM, SERUM 8.3 mg/dL (8.5-10.1); CARBON DIOXIDE 24 mmol/L (21-32); CREATININE 0.9 mg/dL (0.6-1.3); GLUCOSE 111 mg/dL (74-106); POTASSIUM 3.6 mmol/L (3.5-5.1); UREA NITROGEN, BLOOD 32 mg/dL (7-18)
[2024-01-03 20:34] LABS: CHLORIDE 126 mmol/L (98-107); SODIUM SERUM 162 mmol/L (136-145)
[2024-01-04 06:39] LABS: MAGNESIUM 2.1 mg/dL (1.8-2.4)
[2024-01-04 06:51] LABS: BASOPHILS # (AUTO) 0.1 K/uL (0.0-0.2); BASOPHILS % (AUTO) 0.8 % (0.0-2.0); EOSINOPHILS # (AUTO) 0.2 K/uL (0.0-0.7); EOSINOPHILS % (AUTO) 2.9 % (0.0-6.0); HEMATOCRIT 32 % (33-45); HEMOGLOBIN 10.2 g/dL (11.5-14.8); LYMPHOCYTES # (AUTO) 2.2 K/uL (0.8-4.8); LYMPHOCYTES % (AUTO) 34.7 % (20.0-44.0); MEAN CORPUSCULAR HEMOGLOBIN 29 PG (26.0-33.0); MEAN CORPUSCULAR HGB CONC 32 g/dl (31.0-36.0); MEAN CORPUSCULAR VOLUME 89 fL (82-100); MONOCYTES # (AUTO) 0.3 K/uL (0.1-1.30); MONOCYTES % (AUTO) 4.6 % (2.0-12.0); NEUTROPHILS # (AUTO) 3.6 K/uL (1.8-8.9); PLATELET COUNT (AUTO) 163 K/uL (150-450); RED BLOOD CELL COUNT(AUTO) 3.58 MIL/uL (4.0-5.2); RED CELL DISTRIBUTION WIDTH 16.9 % (11.5-15.0); WHITE BLOOD COUNT (AUTO) 6.3 K/uL (4.3-11.0)
[2024-01-04 07:30] VITALS: BP 119/55; TEMP 97.9; O2SAT 98
[2024-01-04 11:21] LABS: ALANINE AMINOTRANSFERASE 28 U/L (12-78); ALBUMIN 2.1 g/dL (3.4-5.0); ALKALINE PHOSPHATASE 93 U/L (46-116); ASPARTATE AMINOTRANSFERASE 28 U/L (15-37); BILIRUBIN,TOTAL 0.5 mg/dL (0.2-1.0); CALCIUM, SERUM 8.2 mg/dL (8.5-10.1); CARBON DIOXIDE 22 mmol/L (21-32); CHLORIDE 123 mmol/L (98-107); CREATININE 0.7 mg/dL (0.6-1.3); GLUCOSE 93 mg/dL (74-106); POTASSIUM 3.5 mmol/L (3.5-5.1); SODIUM SERUM 154 mmol/L (136-145); TOTAL PROTEIN, SERUM 6.3 g/dL (6.4-8.2); UREA NITROGEN, BLOOD 26 mg/dL (7-18)
[2024-01-04 20:00] VITALS: BP 132/68; TEMP 98.1; O2SAT 98
[2024-01-05 06:20] LABS: BASOPHILS % (AUTO) 0.7 % (0.0-2.0); EOSINOPHILS # (AUTO) 0.1 K/uL (0.0-0.7); EOSINOPHILS % (AUTO) 2.2 % (0.0-6.0); HEMATOCRIT 32 % (33-45); HEMOGLOBIN 10.2 g/dL (11.5-14.8); LYMPHOCYTES # (AUTO) 1.5 K/uL (0.8-4.8); LYMPHOCYTES % (AUTO) 37.5 % (20.0-44.0); MEAN CORPUSCULAR HEMOGLOBIN 28 PG (26.0-33.0); MEAN CORPUSCULAR HGB CONC 32 g/dl (31.0-36.0); MEAN CORPUSCULAR VOLUME 87 fL (82-100); MONOCYTES # (AUTO) 0.1 K/uL (0.1-1.30); MONOCYTES % (AUTO) 3.8 % (2.0-12.0); NEUTROPHILS # (AUTO) 2.2 K/uL (1.8-8.9); NEUTROPHILS % (AUTO) 55.8 % (43.0-81.0); PLATELET COUNT (AUTO) 165 K/uL (150-450); RED BLOOD CELL COUNT(AUTO) 3.64 MIL/uL (4.0-5.2); RED CELL DISTRIBUTION WIDTH 15.8 % (11.5-15.0)
[2024-01-05 06:38] LABS: ALANINE AMINOTRANSFERASE 34 U/L (12-78); ALBUMIN 2.2 g/dL (3.4-5.0); ALKALINE PHOSPHATASE 94 U/L (46-116); ASPARTATE AMINOTRANSFERASE 23 U/L (15-37); BILIRUBIN,TOTAL 0.7 mg/dL (0.2-1.0); CALCIUM, SERUM 8.5 mg/dL (8.5-10.1); CARBON DIOXIDE 26 mmol/L (21-32); CHLORIDE 115 mmol/L (98-107); CREATININE 0.6 mg/dL (0.6-1.3); GLUCOSE 110 mg/dL (74-106); MAGNESIUM 2.1 mg/dL (1.8-2.4); PHOSPHORUS 2.4 mg/dL (2.5-4.9); POTASSIUM 3.4 mmol/L (3.5-5.1); SODIUM SERUM 147 mmol/L (136-145); TOTAL PROTEIN, SERUM 6.5 g/dL (6.4-8.2); UREA NITROGEN, BLOOD 14 mg/dL (7-18)
[2024-01-05 08:00] VITALS: BP 149/59; TEMP 97.9; O2SAT 99
[2024-01-05] MEDS: POTASSIUM CL. PREMIX PERIPHER. 50 ML IV SCH (09:51)
[2024-01-05] MEDS ORDERED: MAGNESIUM HYDROXIDE 30 ML UDC GT PRN (11:07)
[2024-01-05] MEDS: IV D5W 1,000 ML IV PRN (11:19)
[2024-01-05] MEDS ORDERED: ACETAMINOPHEN 650 MG/20.3 ML UDC GT PRN (11:30)
[2024-01-05] MEDS ORDERED: POTASSIUM CL. PREMIX PERIPHER. 50 ML IV SCH (13:00)
[2024-01-05 16:00] VITALS: BP_SYST 146; BP_SYST 149; BP_DIAS 69; TEMP 98; O2SAT 100
[2024-01-05] MEDS: MEGESTROL ACETATE 40 MG TABLET GT SCH (16:12)
[2024-01-05] MEDS: NEUTRA PHOS 1 POWD.PACKET NG ONE (16:12)
[2024-01-05] MEDS: JEVITY 1.2 CAL 1,000 ML BOTTLE GT PRN (17:28)
[2024-01-05 20:34] VITALS: BP 150/93; TEMP 98.1; O2SAT 100
[2024-01-06 08:00] VITALS: BP 139/79; TEMP 99.3; O2SAT 99
[2024-01-06] MEDS: FREE WATER VIA TUBE FEEDING GT SCH (10:52)
[2024-01-06 11:51] LABS: BASOPHILS % (AUTO) 0.3 % (0.0-2.0); EOSINOPHILS # (AUTO) 0.1 K/uL (0.0-0.7); EOSINOPHILS % (AUTO) 1.5 % (0.0-6.0); HEMATOCRIT 32 % (33-45); HEMOGLOBIN 10.5 g/dL (11.5-14.8); LYMPHOCYTES % (AUTO) 20.7 % (20.0-44.0); MEAN CORPUSCULAR HEMOGLOBIN 29 PG (26.0-33.0); MEAN CORPUSCULAR HGB CONC 33 g/dl (31.0-36.0); MEAN CORPUSCULAR VOLUME 86 fL (82-100); MONOCYTES # (AUTO) 0.2 K/uL (0.1-1.30); MONOCYTES % (AUTO) 5.2 % (2.0-12.0); NEUTROPHILS # (AUTO) 3.4 K/uL (1.8-8.9); NEUTROPHILS % (AUTO) 72.3 % (43.0-81.0); PLATELET COUNT (AUTO) 155 K/uL (150-450); RED BLOOD CELL COUNT(AUTO) 3.69 MIL/uL (4.0-5.2); RED CELL DISTRIBUTION WIDTH 15.8 % (11.5-15.0); WHITE BLOOD COUNT (AUTO) 4.6 K/uL (4.3-11.0)
[2024-01-06 12:03] LABS: CARBON DIOXIDE 30 mmol/L (21-32); CHLORIDE 111 mmol/L (98-107); CREATININE 0.5 mg/dL (0.6-1.3); GLUCOSE 146 mg/dL (74-106); POTASSIUM 3.1 mmol/L (3.5-5.1); SODIUM SERUM 145 mmol/L (136-145); UREA NITROGEN, BLOOD 6 mg/dL (7-18)
[2024-01-06] MEDS: POTASSIUM CHLORIDE 20 MEQ POWDER PACKET NG SCH (15:03)
[2024-01-06 16:00] VITALS: BP 127/70; TEMP 97.9; TEMP 99.1; O2SAT 98
[2024-01-06 20:00] VITALS: BP 107/72; TEMP 98.6; O2SAT 97
[2024-01-07 06:33] LABS: BASOPHILS % (AUTO) 0.3 % (0.0-2.0); EOSINOPHILS # (AUTO) 0.1 K/uL (0.0-0.7); EOSINOPHILS % (AUTO) 1.6 % (0.0-6.0); HEMATOCRIT 35 % (33-45); HEMOGLOBIN 11.2 g/dL (11.5-14.8); LYMPHOCYTES # (AUTO) 1.1 K/uL (0.8-4.8); LYMPHOCYTES % (AUTO) 21.8 % (20.0-44.0); MEAN CORPUSCULAR HEMOGLOBIN 28 PG (26.0-33.0); MEAN CORPUSCULAR HGB CONC 32 g/dl (31.0-36.0); MEAN CORPUSCULAR VOLUME 88 fL (82-100); MONOCYTES # (AUTO) 0.2 K/uL (0.1-1.30); MONOCYTES % (AUTO) 5.1 % (2.0-12.0); NEUTROPHILS # (AUTO) 3.5 K/uL (1.8-8.9); NEUTROPHILS % (AUTO) 71.2 % (43.0-81.0); PLATELET COUNT (AUTO) 159 K/uL (150-450); RED BLOOD CELL COUNT(AUTO) 3.93 MIL/uL (4.0-5.2); RED CELL DISTRIBUTION WIDTH 16.4 % (11.5-15.0); WHITE BLOOD COUNT (AUTO) 4.9 K/uL (4.3-11.0)
[2024-01-07 06:42] LABS: CALCIUM, SERUM 8.6 mg/dL (8.5-10.1); CARBON DIOXIDE 21 mmol/L (21-32); CHLORIDE 112 mmol/L (98-107); CREATININE 0.5 mg/dL (0.6-1.3); GLUCOSE 121 mg/dL (74-106); POTASSIUM 4.1 mmol/L (3.5-5.1); SODIUM SERUM 141 mmol/L (136-145); UREA NITROGEN, BLOOD 8 mg/dL (7-18)
[2024-01-07 08:00] VITALS: BP 117/66; TEMP 97.9; O2SAT 98
[2024-01-07] MEDS: PANTOPRAZOLE 40 MG/PACK PACK GT SCH (08:23)
[2024-01-07 16:00] VITALS: BP 148/59; TEMP 97.7; O2SAT 99
[2024-01-07 20:00] VITALS: BP 110/71; TEMP 97.3; O2SAT 100
[2024-01-08 06:33] LABS: BASOPHILS % (AUTO) 0.4 % (0.0-2.0); EOSINOPHILS # (AUTO) 0.1 K/uL (0.0-0.7); EOSINOPHILS % (AUTO) 2.4 % (0.0-6.0); HEMATOCRIT 29 % (33-45); HEMOGLOBIN 9.8 g/dL (11.5-14.8); LYMPHOCYTES # (AUTO) 1.1 K/uL (0.8-4.8); MEAN CORPUSCULAR HEMOGLOBIN 29 PG (26.0-33.0); MEAN CORPUSCULAR HGB CONC 34 g/dl (31.0-36.0); MEAN CORPUSCULAR VOLUME 86 fL (82-100); MONOCYTES # (AUTO) 0.3 K/uL (0.1-1.30); MONOCYTES % (AUTO) 6.8 % (2.0-12.0); NEUTROPHILS # (AUTO) 2.8 K/uL (1.8-8.9); NEUTROPHILS % (AUTO) 65.4 % (43.0-81.0); PLATELET COUNT (AUTO) 148 K/uL (150-450); RED BLOOD CELL COUNT(AUTO) 3.37 MIL/uL (4.0-5.2); WHITE BLOOD COUNT (AUTO) 4.2 K/uL (4.3-11.0)
[2024-01-08 06:41] LABS: CALCIUM, SERUM 8.4 mg/dL (8.5-10.1); CARBON DIOXIDE 26 mmol/L (21-32); CHLORIDE 109 mmol/L (98-107); CREATININE 0.6 mg/dL (0.6-1.3); GLUCOSE 124 mg/dL (74-106); POTASSIUM 3.9 mmol/L (3.5-5.1); SODIUM SERUM 141 mmol/L (136-145); UREA NITROGEN, BLOOD 10 mg/dL (7-18)
[2024-01-08 20:00] VITALS: BP 115/59; TEMP 98.6; O2SAT 98
[2024-01-09 06:33] LABS: BASOPHILS % (AUTO) 0.5 % (0.0-2.0); EOSINOPHILS # (AUTO) 0.1 K/uL (0.0-0.7); EOSINOPHILS % (AUTO) 2.9 % (0.0-6.0); HEMATOCRIT 30 % (33-45); HEMOGLOBIN 9.9 g/dL (11.5-14.8); LYMPHOCYTES # (AUTO) 1.3 K/uL (0.8-4.8); LYMPHOCYTES % (AUTO) 29.2 % (20.0-44.0); MEAN CORPUSCULAR HEMOGLOBIN 29 PG (26.0-33.0); MEAN CORPUSCULAR HGB CONC 34 g/dl (31.0-36.0); MEAN CORPUSCULAR VOLUME 86 fL (82-100); MONOCYTES # (AUTO) 0.3 K/uL (0.1-1.30); MONOCYTES % (AUTO) 6.6 % (2.0-12.0); NEUTROPHILS # (AUTO) 2.6 K/uL (1.8-8.9); NEUTROPHILS % (AUTO) 60.8 % (43.0-81.0); PLATELET COUNT (AUTO) 159 K/uL (150-450); RED BLOOD CELL COUNT(AUTO) 3.44 MIL/uL (4.0-5.2); RED CELL DISTRIBUTION WIDTH 16.4 % (11.5-15.0); WHITE BLOOD COUNT (AUTO) 4.3 K/uL (4.3-11.0)
[2024-01-09 06:40] LABS: CALCIUM, SERUM 8.7 mg/dL (8.5-10.1); CARBON DIOXIDE 26 mmol/L (21-32); CHLORIDE 109 mmol/L (98-107); CREATININE 0.6 mg/dL (0.6-1.3); GLUCOSE 80 mg/dL (74-106); SODIUM SERUM 143 mmol/L (136-145); UREA NITROGEN, BLOOD 11 mg/dL (7-18)
[2024-01-09 07:30] VITALS: BP 111/64; TEMP 98.2; O2SAT 99
[2024-01-09] MEDS ORDERED: PANT40SU2 GT (09:54)
[2024-01-09] MEDS ORDERED: MEGE40TA7 GT (09:54)
== END 2024-01-09 13:30 | DRG 640 ==
LOC: EDBD 20:13 → ER 20:13 → MED 01-03 00:03
PROVIDERS: ADMIT Nurse Practitioner Family; ATTEND Internal Medicine
DX: E86.0 Dehydration (principal); G93.41 Metabolic encephalopathy; E44.0 Moderate protein-calorie malnutrition; F03.94 Unspecified dementia, unspecified severity, with anxiety; F03.92 Unspecified dementia, unspecified severity, with psychotic disturbance; E87.0 Hyperosmolality and hypernatremia; E88.09 Other disorders of plasma-protein metabolism, not elsewhere classified; D64.9 Anemia, unspecified; I10 Essential (primary) hypertension; F25.9 Schizoaffective disorder, unspecified; R62.7 Adult failure to thrive; Z87.440 Personal history of urinary (tract) infections; Z79.899 Other long term (current) drug therapy; F29 Unspecified psychosis not due to a substance or known physiological condition; F41.9 Anxiety disorder, unspecified; E86.9 Volume depletion, unspecified; M89.8X9 Other specified disorders of bone, unspecified site; R13.10 Dysphagia, unspecified
CPT/HCPCS: 36415; 70450-TC; 71045-TC; 80048-TC; 80053-TC; 80076-TC; 81001; 83735-TC; 84100-TC; 84484-TC; 85025-TC; 87081-TC; 87086-TC; 92526; 92611-TC; A4223; G0378; J2470; J3480; J7030; J7050; J7070

== ENCOUNTER 2024-09-09 11:15 | Inpatient (IN) | payer MEDICARE, OTHER ==
[~2024-09-09] VITALS: Ht 137.2 cm; Wt 35.4 kg
[~2024-09-09 11:15] MED LIST changes: +MEGE400O5 PO; +MEGE40TA7 GT; +PANT40SU2 GT
[2024-09-09] MEDS ORDERED: MELA3TAB41 PO (11:57)
[2024-09-09] MEDS ORDERED: QUET25TA PO (11:57)
[2024-09-09] MEDS ORDERED: OMEP40CA21 PO (11:57)
[2024-09-09 12:21] LABS: CALCIUM, SERUM 9.9 mg/dL (8.5-10.1); CREATININE 1.2 mg/dL (0.6-1.3); UREA NITROGEN, BLOOD 56.0 mg/dL (7-18)
[2024-09-09 12:25] LABS: PLATELET COUNT (AUTO) 239 K/uL (150-450); RED BLOOD CELL COUNT(AUTO) 5.56 MIL/uL (4.0-5.2); RED CELL DISTRIBUTION WIDTH 18.7 % (11.5-15.0); SODIUM SERUM 168.0 mmol/L (136-145); WHITE BLOOD COUNT (AUTO) 9.7 K/uL (4.3-11.0)
[2024-09-09 12:27] LABS: INR 1.16 (0.91-1.10)
[2024-09-09 12:29] LABS: ASPARTATE AMINOTRANSFERASE 28.0 U/L (15-37); LACTIC ACID 1.7 mmol/L (0.4-2.0); TOTAL PROTEIN, SERUM 8.1 g/dL (6.4-8.2)
[2024-09-09] MEDS ORDERED: ONDANSETRON HCL/PF 4 MG/2 ML VIAL IVP PRN (13:00)
[2024-09-09] MEDS ORDERED: ZOLPIDEM TARTRATE 5 MG TABLET PO PRN (13:00)
[2024-09-09] MEDS ORDERED: MAG HYDROX/AL HYDROX/SIMETH 30 ML UDC PO PRN (13:00)
[2024-09-09] MEDS ORDERED: ACETAMINOPHEN 325 MG TABLET PO PRN ×2 (13:00→15:30)
[2024-09-09] MEDS ORDERED: MAGNESIUM HYDROXIDE 30 ML UDC PO PRN ×2 (13:00→15:30)
[2024-09-09] MEDS: IV D5/0.45 NACL 1,000 ML IV ONE (13:43)
[2024-09-09] MEDS: ENOXAPARIN SODIUM 30 MG/0.3 ML DISP.SYRIN SQ SCH (13:44)
[2024-09-09 13:59] LABS: NEUTROPHILS % (MANUAL) 70 (42-76)
[2024-09-09 14:00] LABS: EOSINOPHILS % (MANUAL) 1 % (0-4); LYMPHOCYTES % (MANUAL) 24 % (16-48); MONOCYTES % (MANUAL) 4 % (0-11.0); PLATELET ESTIMATE ADEQUATE
[2024-09-09] MEDS ORDERED: BISACODYL SUPP (10 MG) 10 MG/SUPP.RECT SUPP.RECT RC PRN (15:30)
[2024-09-09 16:00] VITALS: BP 151/95; TEMP 97.9; O2SAT 98
[2024-09-09] MEDS: LEVOFLOXACIN 750 MG /D5W 150ML 750 MG in PREMIX 1 EA IV ONE (16:51)
[2024-09-09 17:00] VITALS: BP 143/81; TEMP 97.9; O2SAT 97
[2024-09-09] MEDS: CHOLECALCIFEROL 1,000 UNIT TABLET (VIT D3) PO SCH (17:00)
[2024-09-09] MEDS ORDERED: LEVOFLOXACIN 500 MG /D5W 100ML 500 MG in PREMIX 1 EA IV ONE (17:00)
[2024-09-09] MEDS: DOCUSATE SODIUM 100 MG CAPSULE PO SCH (17:08)
[2024-09-09] MEDS: BLOOD SUGAR DIAGNOSTIC 1 EACH STRIP IN SCH (17:21)
[2024-09-09] MEDS: IV 1/2NS 1000 ML 1,000 ML IV PRN (17:29)
[2024-09-09 20:00] VITALS: BP 127/86; TEMP 97.5; O2SAT 97
[2024-09-09] MEDS: QUETIAPINE FUMARATE 25 MG TABLET PO SCH (22:00)
[2024-09-10 08:00] VITALS: BP 134/89; TEMP 97.9; O2SAT 92
[2024-09-10] MEDS: AMLODIPINE BESYLATE 5 MG TABLET PO SCH (09:48)
[2024-09-10] MEDS: MULTIVIT W/MINERALS 1 TAB TABLET PO SCH (09:48)
[2024-09-10] MEDS: LORAZEPAM 0.5 MG TABLET PO SCH (09:48)
[2024-09-10] MEDS: MEGESTROL ACETATE SUSP 400 MG/10 ML UDC PO SCH (09:48)
[2024-09-10] MEDS: QUETIAPINE FUMARATE 25 MG TABLET PO SCH (09:49)
[2024-09-10] MEDS: PANTOPRAZOLE 40 MG TABLET.DR PO SCH (09:51)
[2024-09-10 10:09] LABS: PLATELET COUNT (AUTO) 168 K/uL (150-450); RED BLOOD CELL COUNT(AUTO) 4.62 MIL/uL (4.0-5.2); RED CELL DISTRIBUTION WIDTH 19.2 % (11.5-15.0); WHITE BLOOD COUNT (AUTO) 7.4 K/uL (4.3-11.0)
[2024-09-10 10:16] LABS: CALCIUM, SERUM 8.8 mg/dL (8.5-10.1); CREATININE 0.8 mg/dL (0.6-1.3); PHOSPHORUS 2.1 mg/dL (2.5-4.9); UREA NITROGEN, BLOOD 39.0 mg/dL (7-18)
[2024-09-10 10:29] LABS: SODIUM SERUM 162.0 mmol/L (136-145)
[2024-09-10 15:55] VITALS: BP 145/88; TEMP 97.9; O2SAT 97
[2024-09-10] MEDS: POTASSIUM PHOSPHATE MM 7.5 MMOL in IV NS 0.9% 100 ML IV SCH (16:29)
[2024-09-10 20:00] VITALS: BP 126/75; TEMP 97.7; O2SAT 98
[2024-09-11 07:00] VITALS: BP 123/70; TEMP 98.1; O2SAT 94
[2024-09-11 08:23] LABS: WHITE BLOOD COUNT (AUTO) 7.2 K/uL (4.3-11.0)
[2024-09-11 08:24] LABS: PLATELET COUNT (AUTO) 179 K/uL (150-450); RED BLOOD CELL COUNT(AUTO) 4.52 MIL/uL (4.0-5.2); RED CELL DISTRIBUTION WIDTH 18.7 % (11.5-15.0)
[2024-09-11 10:27] LABS: CREATINE KINASE, TOTAL 85 U/L (26-192)
[2024-09-11 11:05] LABS: CALCIUM, SERUM 8.8 mg/dL (8.5-10.1); CREATININE 0.8 mg/dL (0.6-1.3); UREA NITROGEN, BLOOD 29 mg/dL (7-18)
[2024-09-11 11:06] LABS: PHOSPHORUS 2.4 mg/dL (2.5-4.9)
[2024-09-11 11:07] LABS: ASPARTATE AMINOTRANSFERASE 27 U/L (15-37); TOTAL PROTEIN, SERUM 6.3 g/dL (6.4-8.2)
[2024-09-11 11:10] LABS: SODIUM SERUM 162 mmol/L (136-145)
[2024-09-11 12:44] LABS: APPEARANCE,URINE TURBID (CLEAR); BLOOD, URINE 1+ Ery/uL (NEGATIVE); LEUKOCYTE ESTERASE ,URINE TRACE (NEGATIVE); NITRITE, URINE POSITIVE (NEGATIVE); UGLUCOSE TRACE mg/dL (NEGATIVE)
[2024-09-11 13:08] LABS: CREATININE, URINE 267.4 MG/DL (30.0-125.0); URINE SODIUM, RANDOM 54.0 mmol/l (40-220); URINE TOTAL PROTEIN 144.6 mg/dL (0-11.9)
[2024-09-11 13:15] LABS: ADD URINE CULTURE YES; CALCIUM OXALATE CRYSTALS,UR Moderate /HPF (None Seen); SQUAMOUS EPITHELIAL CELL,UR Few /HPF (None Seen); URINE AMORPHOUS URATE Many /HPF (None Seen)
[2024-09-11] MEDS: IV D5/0.45 NACL 1,000 ML IV PRN (13:19)
[2024-09-11] MEDS: IV D5W 1,000 ML IV PRN (15:55)
[2024-09-11 16:00] VITALS: BP 134/72; TEMP 98.4; O2SAT 99
[2024-09-11] MEDS: LEVOFLOXACIN 500 MG /D5W 100ML 500 MG in PREMIX 1 EA IV SCH (16:02)
[2024-09-11] MEDS: Sodium Phosphate 15 MMOL in IV NS 0.9% 245 ML IV SCH (18:12)
[2024-09-11 18:34] VITALS: BP 136/72; TEMP 98.4; O2SAT 99
[2024-09-11 20:00] VITALS: BP_SYST 104; BP_SYST 144; BP_DIAS 90; BP_DIAS 94; TEMP 98.1; O2SAT 98
[2024-09-12 08:00] VITALS: BP 114/99; TEMP 98.1; O2SAT 99
[2024-09-12 08:07] LABS: PTH, INTACT 29 pg/mL (15-65)
[2024-09-12 09:59] LABS: PLATELET COUNT (AUTO) 155 K/uL (150-450); RED BLOOD CELL COUNT(AUTO) 4.09 MIL/uL (4.0-5.2); RED CELL DISTRIBUTION WIDTH 17.7 % (11.5-15.0); WHITE BLOOD COUNT (AUTO) 6.6 K/uL (4.3-11.0)
[2024-09-12 10:32] LABS: ASPARTATE AMINOTRANSFERASE 24.0 U/L (15-37); CALCIUM, SERUM 8.0 mg/dL (8.5-10.1); CREATININE 0.7 mg/dL (0.6-1.3); PHOSPHORUS 1.7 mg/dL (2.5-4.9); SODIUM SERUM 146.0 mmol/L (136-145); TOTAL PROTEIN, SERUM 5.9 g/dL (6.4-8.2); UREA NITROGEN, BLOOD 13.0 mg/dL (7-18)
[2024-09-12] MEDS: PHYTONADIONE INJ 10 MG/1 ML AMPUL SQ ONE ×2 (14:30→18:25)
[2024-09-12 16:00] VITALS: BP 126/72; TEMP 98.4; O2SAT 99
[2024-09-12] MEDS: Magnesium 1GM/D5W 100ML PREMIX 100 ML IV SCH (16:09)
[2024-09-12] MEDS: POTASSIUM CL. PREMIX PERIPHER. 50 ML IV SCH (18:26)
[2024-09-12 20:00] VITALS: BP 147/88; TEMP 97.5; O2SAT 96
[2024-09-12] MEDS: Sodium Phosphate 15 MMOL in IV NS 0.9% 245 ML IV ONE (22:49)
[2024-09-13 05:08] LABS: FOLIC ACID 6.2 ng/mL (>3.0)
[2024-09-13 06:49] LABS: PLATELET COUNT (AUTO) 183 K/uL (150-450); RED BLOOD CELL COUNT(AUTO) 4.48 MIL/uL (4.0-5.2); RED CELL DISTRIBUTION WIDTH 17.5 % (11.5-15.0); WHITE BLOOD COUNT (AUTO) 6.8 K/uL (4.3-11.0)
[2024-09-13 07:03] LABS: ASPARTATE AMINOTRANSFERASE 24.0 U/L (15-37); CALCIUM, SERUM 8.2 mg/dL (8.5-10.1); CREATININE 0.6 mg/dL (0.6-1.3); PHOSPHORUS 2.6 mg/dL (2.5-4.9); SODIUM SERUM 146.0 mmol/L (136-145); TOTAL PROTEIN, SERUM 6.4 g/dL (6.4-8.2); UREA NITROGEN, BLOOD 7.0 mg/dL (7-18)
[2024-09-13 07:15] LABS: INR 1.1 (0.91-1.10)
[2024-09-13 08:00] VITALS: BP 148/87; TEMP 98; O2SAT 97
[2024-09-13 16:00] VITALS: BP 134/78; TEMP 97.8; O2SAT 98
[2024-09-13 23:16] VITALS: BP 114/51; TEMP 99.7; O2SAT 99
[2024-09-14] VITALS: TEMP 98.1
[2024-09-14 08:00] VITALS: BP 150/76; TEMP 98.2; O2SAT 96
[2024-09-14 11:45] LABS: PLATELET COUNT (AUTO) 161 K/uL (150-450); RED BLOOD CELL COUNT(AUTO) 4.22 MIL/uL (4.0-5.2); RED CELL DISTRIBUTION WIDTH 17.6 % (11.5-15.0); WHITE BLOOD COUNT (AUTO) 5.9 K/uL (4.3-11.0)
[2024-09-14 11:58] LABS: ASPARTATE AMINOTRANSFERASE 24.0 U/L (15-37); CALCIUM, SERUM 8.2 mg/dL (8.5-10.1); CREATININE 0.5 mg/dL (0.6-1.3); PHOSPHORUS 2.0 mg/dL (2.5-4.9); SODIUM SERUM 142.0 mmol/L (136-145); TOTAL PROTEIN, SERUM 6.0 g/dL (6.4-8.2); UREA NITROGEN, BLOOD 3.0 mg/dL (7-18)
[2024-09-14 16:00] VITALS: BP 155/63; TEMP 97.2; O2SAT 94
[2024-09-14] MEDS: POTASSIUM CL. PREMIX PERIPHER. 50 ML IV SCH (17:00)
[2024-09-14 20:00] VITALS: BP_SYST 122; BP_SYST 147; BP_DIAS 86; BP_DIAS 88; TEMP 97.5; TEMP 98.1; O2SAT 94; O2SAT 96
[2024-09-14] MEDS: Sodium Phosphate 15 MMOL in IV NS 0.9% 245 ML IV SCH (21:35)
[2024-09-15 07:06] LABS: PLATELET COUNT (AUTO) 151 K/uL (150-450); RED BLOOD CELL COUNT(AUTO) 3.87 MIL/uL (4.0-5.2); RED CELL DISTRIBUTION WIDTH 17.7 % (11.5-15.0); WHITE BLOOD COUNT (AUTO) 5.0 K/uL (4.3-11.0)
[2024-09-15 07:26] LABS: ASPARTATE AMINOTRANSFERASE 24.0 U/L (15-37); CALCIUM, SERUM 8.2 mg/dL (8.5-10.1); CREATININE 0.4 mg/dL (0.6-1.3); PHOSPHORUS 2.6 mg/dL (2.5-4.9); SODIUM SERUM 141.0 mmol/L (136-145); TOTAL PROTEIN, SERUM 5.8 g/dL (6.4-8.2); UREA NITROGEN, BLOOD 2.0 mg/dL (7-18)
[2024-09-15 08:00] VITALS: BP 118/78; TEMP 98.1; O2SAT 98
[2024-09-15] MEDS: POTASSIUM CL. PREMIX PERIPHER. 50 ML IV SCH (08:23)
[2024-09-15] MEDS: Z GUARD REMEDY 4 OZ OINT TP PRN (09:38)
[2024-09-15 16:00] VITALS: BP 141/88; TEMP 98.1; O2SAT 99
[2024-09-15] MEDS: NA PHOS,M-B/NA PHOS,DI-BA 1 EA ENEMA RC PRN (16:33)
[2024-09-15 20:09] VITALS: BP 124/81; TEMP 98.4; O2SAT 99
[2024-09-16 08:03] LABS: PLATELET COUNT (AUTO) 159 K/uL (150-450); RED BLOOD CELL COUNT(AUTO) 4.09 MIL/uL (4.0-5.2); RED CELL DISTRIBUTION WIDTH 18.3 % (11.5-15.0); WHITE BLOOD COUNT (AUTO) 5.3 K/uL (4.3-11.0)
[2024-09-16 08:16] LABS: ASPARTATE AMINOTRANSFERASE 27.0 U/L (15-37); CALCIUM, SERUM 8.5 mg/dL (8.5-10.1); CREATININE 0.5 mg/dL (0.6-1.3); PHOSPHORUS 1.9 mg/dL (2.5-4.9); SODIUM SERUM 139.0 mmol/L (136-145); TOTAL PROTEIN, SERUM 6.0 g/dL (6.4-8.2); UREA NITROGEN, BLOOD 2.0 mg/dL (7-18)
[2024-09-16 08:53] VITALS: BP 126/78; TEMP 98.4; O2SAT 100
[2024-09-16] MEDS: PANTOPRAZOLE 40 MG VIAL IV SCH (08:55)
[2024-09-16] MEDS: MEROPENEM 1 G in IV NS 0.9% 100 ML IV SCH (13:10)
[2024-09-16 15:37] VITALS: BP 127/70; TEMP 97.5; O2SAT 100
[2024-09-16] MEDS: IV 1/2NS 1000 ML 1,000 ML IV PRN (15:53)
[2024-09-16 16:07] LABS: VITAMIN B1 THIAMINE,WB 93.6 nmol/L (66.5-200.0)
[2024-09-16] MEDS: Sodium Phosphate 15 MMOL in IV NS 0.9% 245 ML IV SCH (16:07)
[2024-09-16] MEDS ORDERED: DEXTROSE 50%-WATER 50 ML DISP.SYRIN IV PRN (16:30)
[2024-09-16 20:00] VITALS: BP 133/93; TEMP 97.9; TEMP 98.2; O2SAT 95
[2024-09-16 20:06] LABS: METHYLMALONIC ACID 76.0 nmol/L (0-378)
[2024-09-17 08:00] VITALS: BP 127/98; TEMP 98.6; O2SAT 97
[2024-09-17] MEDS ORDERED: ANESTHESIA TRAY IN PYXIS 1 EA TRAY MC ONE ×2 (09:42→11:40)
[2024-09-17] MEDS ORDERED: ALBUMIN 5% 250 ML IV ONE (10:00)
[2024-09-17 10:08] LABS: PLATELET COUNT (AUTO) 167 K/uL (150-450); RED BLOOD CELL COUNT(AUTO) 3.82 MIL/uL (4.0-5.2); RED CELL DISTRIBUTION WIDTH 18.1 % (11.5-15.0); WHITE BLOOD COUNT (AUTO) 4.5 K/uL (4.3-11.0)
[2024-09-17 10:18] LABS: CALCIUM, SERUM 8.3 mg/dL (8.5-10.1); CREATININE 0.6 mg/dL (0.6-1.3); PHOSPHORUS 2.5 mg/dL (2.5-4.9); UREA NITROGEN, BLOOD 3.0 mg/dL (7-18)
[2024-09-17 10:19] LABS: INR 1.0 (0.91-1.10)
[2024-09-17 10:30] LABS: SODIUM SERUM 142.0 mmol/L (136-145)
[2024-09-17] MEDS: hydrALAZINE HCL IV 20 MG VIAL IV PRN (11:52)
[2024-09-17] MEDS: POTASSIUM CL. PREMIX PERIPHER. 50 ML IV SCH (15:52)
[2024-09-17 20:00] VITALS: BP 136/71; TEMP 99.3; O2SAT 95
[2024-09-18 07:07] LABS: *SPE A/G RATIO 0.7 (0.7-1.7); *SPE ALBUMIN 2.5 g/dL (2.9-4.4); *SPE ALPHA-1-GLOBULIN 0.2 g/dL (0.0-0.4); *SPE ALPHA-2-GLOBULIN 1.0 g/dL (0.4-1.0); *SPE BETA GLOBULIN 1.1 g/dL (0.7-1.3); *SPE GLOBULIN, TOTAL 3.5 g/dL (2.2-3.9); *SPE M-SPIKE Not Observed g/dL (Not Observed); *SPE PROTEIN TOTAL 6.0 g/dL (6.0-8.5); *SPEGAMMA GLOBULIN 1.2 g/dL (0.4-1.8)
[2024-09-18 07:34] LABS: CALCIUM, SERUM 9.0 mg/dL (8.5-10.1); CREATININE 0.7 mg/dL (0.6-1.3); SODIUM SERUM 139.0 mmol/L (136-145); UREA NITROGEN, BLOOD 5.0 mg/dL (7-18)
[2024-09-18 08:00] VITALS: BP 155/75; TEMP 98.2; O2SAT 98
[2024-09-18] MEDS: JEVITY 1.2 CAL 1,000 ML BOTTLE GT SCH (10:14)
[2024-09-18] MEDS ORDERED: AMLO-212 GT (10:29)
[2024-09-18] MEDS ORDERED: CHOL100040 GT (10:29)
[2024-09-18] MEDS ORDERED: MERO1VIA23 IV (10:30)
[2024-09-18] MEDS ORDERED: LACT-209 GT (10:30)
[2024-09-18] MEDS ORDERED: Quetiapine Fumarate GT ×2 (10:30)
[2024-09-18] MEDS ORDERED: HYDR-3895 GT (10:30)
[2024-09-18 16:02] VITALS: BP 113/71; TEMP 97.5; O2SAT 97
== END 2024-09-18 18:49 | DRG 640 ==
LOC: ER 11:38 → MED 12:47
PROVIDERS: ADMIT Student in an Organized Health Care Education/Training Program; ATTEND Nurse Practitioner Acute Care
PROC: 0DH63UZ Insertion of Feeding Device into Stomach, Percutaneous Approach (ICD-10-PCS; principal; 2024-09-17 10:00)
DX: E87.0 Hyperosmolality and hypernatremia (principal); G93.41 Metabolic encephalopathy; F03.94 Unspecified dementia, unspecified severity, with anxiety; F03.918 Unspecified dementia, unspecified severity, with other behavioral disturbance; E46 Unspecified protein-calorie malnutrition; F03.92 Unspecified dementia, unspecified severity, with psychotic disturbance; Z16.12 Extended spectrum beta lactamase (ESBL) resistance; N39.0 Urinary tract infection, site not specified; N17.9 Acute kidney failure, unspecified; E86.0 Dehydration; R62.7 Adult failure to thrive; E88.09 Other disorders of plasma-protein metabolism, not elsewhere classified; R13.10 Dysphagia, unspecified; I10 Essential (primary) hypertension; F25.9 Schizoaffective disorder, unspecified; M89.8X9 Other specified disorders of bone, unspecified site; Z79.899 Other long term (current) drug therapy; R79.89 Other specified abnormal findings of blood chemistry; D64.9 Anemia, unspecified; E87.8 Other disorders of electrolyte and fluid balance, not elsewhere classified; F29 Unspecified psychosis not due to a substance or known physiological condition; E86.9 Volume depletion, unspecified; B96.20 Unspecified Escherichia coli [E. coli] as the cause of diseases classified elsewhere; L89.156 Pressure-induced deep tissue damage of sacral region; L89.326 Pressure-induced deep tissue damage of left buttock; L89.316 Pressure-induced deep tissue damage of right buttock; L98.9 Disorder of the skin and subcutaneous tissue, unspecified; F41.9 Anxiety disorder, unspecified
CPT/HCPCS: 36415; 43246; 70450-TC; 71045-TC; 80048-TC; 80053-TC; 80076-TC; 81001; 82550-TC; 82570-TC; 82607-TC; 82962-TC; 83605-TC; 83735-TC; 83921; 83935-TC; 83970; 84100-TC; 84155; 84165; 84300-TC; 84425; 84443-TC; 84550-TC; 85025-TC; 85027-TC; 85610-TC; 85730-TC; 86850-TC; 87040-TC; 87086-TC; 87186-TC; 92526; 92611; A4216; A4223; A6403; A9563; G0378; J0360; J1650; J1956; J2185; J2470; J2704; J3430; J3475; J3480; J3490; J7030; J7050; J7070; P9045